=== PATIENT | male | born 1965 | race Caucasian/White ===

== ENCOUNTER → 2017-07-05 | Outpatient (CLI) | payer BC ==
--- NOTE | 2017-07-05 13:03 | US ---
"EXAMINATION TYPE: US venous doppler duplex LE RT DATE OF EXAM: 07/05/2017 12:47 PM COMPARISON: NONE CLINICAL HISTORY: R60.0 Localized edema. Right leg pain and swelling SIDE PERFORMED: Right TECHNIQUE: The lower extremity deep venous system is examined utilizing real time linear array sonog arsh with graded compression, doppler sonography and color-flow sonography. VESSELS IMAGED: External Iliac Vein (EIV) Common Femoral Vein Deep Femoral Vein Greater Saphenous Vein * Femoral Vein Popliteal Vein Small Saphenous Vein * Proximal Calf Veins (* superficial vessels) Right Leg: Positive for DVT from the mid superficial femoral vein to the proximal calf veins Grayscale, color doppler, spectral doppler imaging performed of the deep veins of the right lower ext remity. There is normal flow, compressibility, vascular waveforms in the common femoral vein, profun da femoris, and in the proximal superficial femoral vein. Beginning at mid superficial femoral vein t here is absent color flow with hyperechoic material expanding lumen and noncompressibility identified , this extends through distal superficial femoral vein and popliteal vein and proximal calf veins in the right lower extremity. IMPRESSION: Fairly moderate segment acute DVT in the right lower extremity from mid superficial femo ral vein level through the proximal calf veins A [place] level critical message alert has been initiated for Alok Monet MD via the [employer] | Critical Results System on 07/05/2017 1:01 PM. This message alert has been sent to Alok Monet MD via the preferences provided by the clinician for the receipt of Radiology Critical Findings. Message ID [id number]."
== END | disposition home or self-care (01) ==
LOC: RADUSWWP 12:07
PROVIDERS: ATTEND Internal Medicine
DX: I82.411 Acute embolism and thrombosis of right femoral vein (principal); I82.4Y1 Acute embolism and thrombosis of unspecified deep veins of right proximal lower extremity

== ENCOUNTER → 2018-02-06 | Outpatient (CLI) | payer BC ==
[2018-02-07 03:34] LABS: Cardiolipin Ab IgG Interp NEGATIVE (NEGATIVE); Cardiolipin Ab IgM Interp NEGATIVE (NEGATIVE); Cardiolipin IgA Antibody <0.5 U/mL; Cardiolipin IgM Antibody <0.2 U/mL
[2018-02-08 10:58] LABS: Protein C (Activity) 111 % (71-138)
[2018-02-08 14:33] LABS: Free Protein S Antigen 112 % (57 - 171)
== END | disposition home or self-care (01) ==
LOC: LABWHC1 16:05
PROVIDERS: ATTEND Internal Medicine
DX: I82.511 Chronic embolism and thrombosis of right femoral vein (principal)
CPT/HCPCS: 36415; 81241; 83090; 85303; 85306; 86147